=== PATIENT | female | born 1940 | race Caucasian/White ===

== ENCOUNTER 2019-01-01 13:09 | Emergency (ER) | payer MEDICARE ==
[~2019-01-01] VITALS: Ht 152.4 cm; Wt 68.0 kg
[2019-01-01] MEDS ORDERED: ZOCOR20 MG PO (13:21)
[2019-01-01] MEDS ORDERED: LOPRESSOR50 PO (13:21)
[2019-01-01] MEDS ORDERED: PRILOSEC 10MG C10 MG PO (13:21)
[2019-01-01 14:08] LABS: ABSOLUTE EOSINOPHILS 0.1 thou/uL (0.0-0.7); ABSOLUTE MONOCYTES 0.5 thou/uL (0.0-1.2); ABSOLUTE NEUTROPHILS 5.2 thou/uL (1.6-8.1); BASOPHILS 0.6 %; EOSINOPHILS 0.7 %; HEMATOCRIT 36.8 % (37.0-47.0); HEMOGLOBIN 12.2 gm/dL (12.0-15.0); LYMPHOCYTES 14.2 %; MCH 28.7 pg (26.0-34.0); MCHC 33.2 g/dL (28.0-37.0); MCV 86.6 fL (80.0-100.0); MONOCYTES 7.6 %; MPV 9.4 fl. (7.2-11.1); NUCLEATED RBCS 0 /100WBC; PLATELET COUNT* 205 thou/uL (150-400); POLYS 76.9 %; RBC 4.26 mil/uL (4.20-5.00); RDW-CV 14.7 % (10.5-14.5); WBC 6.8 thou/uL (4.0-11.0)
[2019-01-01 14:26] LABS: INFLUENZA B ANTIGEN None Detected (None Detect)
[2019-01-01 14:27] LABS: ALBUMIN 3.9 g/dL (3.4-5.0); ALKALINE PHOSPHATASE 68 U/L (46-116); ANION GAP 7 mmol/L (7-16); BUN 12 mg/dL (7-18); CALCIUM 9.4 mg/dL (8.5-10.1); CHLORIDE 104 mmol/L (98-107); CO2 29 mmol/L (21-32); CREATININE 0.7 mg/dL (0.6-1.3); GLUCOSE 97 mg/dL (70-99); POTASSIUM 4.4 mmol/L (3.5-5.1); SGOT 24 U/L (15-37); SGPT 32 U/L (30-65); SODIUM 140 mmol/L (136-145); TOTAL BILIRUBIN 1.7 mg/dL (<0.1-1.0); TOTAL PROTEIN 7.3 g/dL (6.4-8.2); TROPONIN-I LEVEL <0.06 ng/mL (<0.06)
[2019-01-01] MEDS ORDERED: TAMIFLU75 MG PO (15:23)
[2019-01-01 16:00] VITALS: BP 139/63
--- NOTE | 2019-01-02 12:13 | EKG ---
[place] [address] ELECTROCARDIOGRAM REPORT Name: SANDY PAUL [id number] Admission: 01/01/19 Attend Phys: Discharge: 01/01/19 Date of : 40 Report #: [id number] THIS REPORT FOR: //name// [facility] ED Test Date: 2019-01-01 Test Time: 14:37:15 Pat Name: SANDY PAUL Department: Room: Gender: F [employer]: JAM : 1940 Requested By: Flo Flores Order Number: [id number] MD: Erasmo Laird Measurements Intervals [place] Rate: 75 P: -57 [place]: 218 QRS: -26 QRSD: 145 T: 126 QT: 431 QTc: 482 Interpretive Statements Atrial-sensed ventricular-paced rhythm No further analysis attempted due to paced rhythm No previous ECG available for comparison Electronically Signed On 01-02-2019 12:13:29 CDT by Erasmo Laird [email or web address] <ELECTRONICALLY SIGNED> By: Erasmo Laird MD, [facility] 01/02/19 1213 [id number] 143 Erasmo Laird MD, FACC /EPI
== END 2019-01-01 16:01 | disposition home or self-care (01) ==
LOC: M.ERS 13:09
PROVIDERS: Emergency Medicine
DX: J10.1 Influenza due to other identified influenza virus with other respiratory manifestations (principal); Z88.2 Allergy status to sulfonamides